=== PATIENT | female | born 1980 | race Two or more races ===

== ENCOUNTER 2020-08-01 16:03 | Inpatient (IN) | payer OTHER ==
[~2020-08-01] VITALS: Ht 157.5 cm; Wt 86.0 kg
[2020-08-01] MEDS ORDERED: ONDANSETRON HCL 4 MG/2 ML VIAL IV ONE (16:30)
[2020-08-01] MEDS ORDERED: SODIUM CHLORIDE 0.9% 1,000 ML IVB ONE (16:30)
[2020-08-01] MEDS ORDERED: MORPHINE SULFATE 4 MG/ML SYR/VIAL IV ONE ×2 (16:30→18:45)
[2020-08-01 16:47] LABS: Basophils # (auto) 0.1 10 ^3/uL (0-0.2); Basophils % (auto) 0.5 % (0.0-2.0); Eosinophils # (auto) 0.1 10 ^3/uL (0-0.8); Eosinophils % (auto) 0.9 % (0.0-7.0); Hematocrit 40.8 % (36.0-46.0); Hemoglobin 13.6 g/dL (12.2-16.2); Lymphocytes # (auto) 1.9 10 ^3/uL (0.4-5.4); Lymphocytes % (auto) 15.9 % (10.0-50.0); Mean Corpuscular Hemoglobin 29.2 pg (28.0-32.0); Mean Corpuscular Hgb Conc. 33.5 g/dL (32.0-36.0); Mean Corpuscular Volume 87.2 fL (80.0-100.0); Monocytes # (auto) 0.8 10 ^3/uL (0-1.3); Monocytes % (auto) 6.9 % (0.0-12.0); Neutrophils # (auto) 9.1 10 ^3/uL (1.6-8.6); Neutrophils % (auto) 75.8 % (37.0-80.0); Red Blood Cells 4.68 10^6/uL (4.0-5.20)
[2020-08-01 17:00] LABS: Partial Thromboplastin Time 24.2 sec (23.0-31.2)
[2020-08-01 17:10] LABS: Albumin 3.4 g/dL (3.4-5.0); Anion Gap 7 (5-15); Blood Urea Nitrogen 12 mg/dL (7-18); Carbon Dioxide 26 mmol/L (21-32); Chloride 99 mmol/L (98-107); Glucose 130 mg/dL (74-106); Lipase 62 U/L (73-393); Potassium 3.7 mmol/L (3.5-5.1); Sodium 132 mmol/L (136-145)
[2020-08-01 17:15] LABS: Lactic Acid w/Reflex 3.2 mmol/L (0.4-2.0)
[2020-08-01 17:18] LABS: Alanine Aminotransferase 62 U/L (13-56); Alkaline Phosphatase 316 U/L (45-117); Aspartate Aminotransferase 25 U/L (15-37); BUN/Creatinine Ratio 15.6; Bilirubin, Total 0.3 mg/dL (0.2-1.0); GFR African American 107 mL/min; GFR Non-African American 88 mL/min; Total Protein 9.3 g/dL (6.4-8.2)
[2020-08-01] MEDS ORDERED: CIPROFLOXACIN 400MG/200ML 200 ML IV ONE (17:30)
[2020-08-01] MEDS ORDERED: metroNIDAZOLE 500MG/100ML 100 ML IV ONE ×2 (17:30→22:30)
[2020-08-01 17:31] LABS: Urine Bacteria FEW /hpf (None Seen); Urine Blood Negative /uL (Negative); Urine Mucus FEW (None Seen); Urine Specific Gravity 1.027 (1.001-1.035); Urine WBC 9 /hpf (0 - 5)
[2020-08-01] MEDS ORDERED: ACETAMINOPHEN 325 MG TAB PO ONE (18:30)
[2020-08-01] MEDS ORDERED: MORPHINE SULFATE INJECTION 2 MG/ML SYRG IV ONE ×2 (18:30→19:30)
[2020-08-01] MEDS ORDERED: SODIUM CHLORIDE 0.9% 1,000 ML IV ONE ×2 (18:30→19:30)
[2020-08-01] MEDS ORDERED: HYDROmorphone HCL 2 MG/ML VL IV ONE (19:45)
[2020-08-01] MEDS ORDERED: IBUPROFEN 800 MG TAB PO ONE (19:45)
[2020-08-01] MEDS: SODIUM CHLORIDE 0.9% 1,000 ML IV SCH (22:30)
[2020-08-01] MEDS ORDERED: VANCOMYCIN PER PHARMACY 0 MG IV SCH (22:30)
[2020-08-01] MEDS ORDERED: NITROGLYCERIN 0.4 MG SL TAB SL PRN (22:30)
[2020-08-01] MEDS: VANCOMYCIN 1GM/250ML 250 ML IV SCH (23:29)
[2020-08-02] MEDS ORDERED: metroNIDAZOLE 500MG/100ML 100 ML IV SCH (06:00)
[2020-08-02 06:57] LABS: Basophils # (auto) 0 10 ^3/uL (0-0.2); Basophils % (auto) 0.1 % (0.0-2.0); Eosinophils # (auto) 0 10 ^3/uL (0-0.8); Eosinophils % (auto) 0.1 % (0.0-7.0); Hematocrit 36.7 % (36.0-46.0); Hemoglobin 12.5 g/dL (12.2-16.2); Lymphocytes # (auto) 1.1 10 ^3/uL (0.4-5.4); Lymphocytes % (auto) 9.6 % (10.0-50.0); Mean Corpuscular Hemoglobin 29.1 pg (28.0-32.0); Mean Corpuscular Hgb Conc. 33.9 g/dL (32.0-36.0); Mean Corpuscular Volume 85.8 fL (80.0-100.0); Monocytes # (auto) 0.5 10 ^3/uL (0-1.3); Monocytes % (auto) 4.2 % (0.0-12.0); Red Blood Cells 4.28 10^6/uL (4.0-5.20); Red Cell Distribution Width 13.7 % (11.8-14.3); White Blood Cell 11.6 10^3/uL (4.4-10.8)
[2020-08-02 07:33] LABS: Albumin 2.5 g/dL (3.4-5.0); Calcium 8.1 mg/dL (8.5-10.1); Potassium 3.3 mmol/L (3.5-5.1)
[2020-08-02 07:47] LABS: BUN/Creatinine Ratio 16.7; Bilirubin, Total 0.6 mg/dL (0.2-1.0); Total Protein 7.3 g/dL (6.4-8.2)
[2020-08-02] MEDS: SODIUM CHLORIDE 0.9% 1,000 ML IV SCH ×2 (08:30→18:31)
[2020-08-02] MEDS: MORPHINE SULFATE 4 MG/ML SYR/VIAL IV PRN (08:57)
[2020-08-02] MEDS ORDERED: cefTRIAXone 1GM/50ML D5W 50 ML IV SCH (09:00)
[2020-08-02] MEDS: PANTOPRAZOLE 40 MG/10 ML VIAL INJ IV SCH (09:38)
[2020-08-02] MEDS: VANCOMYCIN 1GM/250ML 250 ML IV SCH (09:51)
[2020-08-02] MEDS ORDERED: fentaNYL CITRATE 100 MCG/2 ML VL IV ONE (10:45)
[2020-08-02] MEDS ORDERED: MIDAZOLAM HCL 2MG/2ML 2ml VIAL (1mg/ml) IV ONE (10:45)
[2020-08-02] MEDS ORDERED: PIPERACILLIN-TAZO 4.5GM 100 ML IV ONE (11:00)
[2020-08-02] MEDS: POTASSIUM CHL 20MEQ/100ML 100 ML IV SCH ×2 (11:17→13:00)
[2020-08-02] MEDS ORDERED: IBUP200C95 PO (11:49)
[2020-08-02] MEDS ORDERED: ACET1CAP14 PO (11:49)
[2020-08-02] MEDS ORDERED: ACETAMINOPHEN 325 MG TAB PO ONE (12:00)
[2020-08-02] MEDS ORDERED: LIDOCAINE 2%HCL (LOCAL ANESTH.) INJ 20ML MDV ONE (12:11)
[2020-08-02] MEDS: PIPERACILLIN-TAZO 4.5GM 100 ML IV SCH ×2 (14:00→22:24)
[2020-08-02] MEDS: ACETAMINOPHEN 325 MG TAB PO PRN (18:37)
[2020-08-02] MEDS: MORPHINE SULFATE INJECTION 2 MG/ML SYRG IV PRN (21:58)
[2020-08-03] MEDS: ONDANSETRON HCL 4 MG/2 ML VIAL IV PRN ×4 (00:11→21:19)
[2020-08-03] MEDS: ACETAMINOPHEN 325 MG TAB PO PRN ×2 (00:48→18:49)
[2020-08-03] MEDS: SODIUM CHLORIDE 0.9% 1,000 ML IV SCH ×2 (04:30→15:03)
[2020-08-03] MEDS: MORPHINE SULFATE INJECTION 2 MG/ML SYRG IV PRN (05:18)
[2020-08-03] MEDS: PIPERACILLIN-TAZO 4.5GM 100 ML IV SCH ×3 (06:00→22:20)
[2020-08-03 07:28] LABS: Basophils # (auto) 0 10 ^3/uL (0-0.2); Basophils % (auto) 0.2 % (0.0-2.0); Eosinophils # (auto) 0 10 ^3/uL (0-0.8); Hematocrit 35.7 % (36.0-46.0); Hemoglobin 11.8 g/dL (12.2-16.2); Lymphocytes # (auto) 0.8 10 ^3/uL (0.4-5.4); Lymphocytes % (auto) 4.2 % (10.0-50.0); Mean Corpuscular Hemoglobin 28.6 pg (28.0-32.0); Mean Corpuscular Volume 86.7 fL (80.0-100.0); Monocytes # (auto) 0.8 10 ^3/uL (0-1.3); Monocytes % (auto) 4.2 % (0.0-12.0); Neutrophils # (auto) 16.3 10 ^3/uL (1.6-8.6); Neutrophils % (auto) 91.4 % (37.0-80.0); Red Blood Cells 4.12 10^6/uL (4.0-5.20); Red Cell Distribution Width 14.1 % (11.8-14.3); White Blood Cell 17.9 10^3/uL (4.4-10.8)
[2020-08-03 07:52] LABS: Calcium 8.1 mg/dL (8.5-10.1); Magnesium 2.2 mg/dL (1.6-2.6); Potassium 3.3 mmol/L (3.5-5.1)
[2020-08-03 07:54] LABS: BUN/Creatinine Ratio 16.3
[2020-08-03] MEDS: PANTOPRAZOLE 40 MG/10 ML VIAL INJ IV SCH (10:05)
[2020-08-03] MEDS: MORPHINE SULFATE 4 MG/ML SYR/VIAL IV PRN ×3 (12:13→21:19)
[2020-08-03] MEDS ORDERED: POTASSIUM CHLORIDE 40 MEQ, LIDOCAINE 1% (LOCAL ANESTH.) 4 ML in SODIUM CHL 0.9% 250 ML IV ONE (19:30)
[2020-08-03] MEDS: D5W/SOD CHL 0.9%/KCL 40MEQ 1,000 ML IV SCH (20:08)
[2020-08-03 22:00] VITALS: BP 124/77
[2020-08-03 22:11] VITALS: BP 124/77
[2020-08-04] MEDS: ACETAMINOPHEN 325 MG TAB PO PRN (01:56)
[2020-08-04] MEDS: MORPHINE SULFATE 4 MG/ML SYR/VIAL IV PRN ×4 (04:57→21:35)
[2020-08-04] MEDS: D5W/SOD CHL 0.9%/KCL 40MEQ 1,000 ML IV SCH ×2 (04:58→06:01)
[2020-08-04] MEDS: ONDANSETRON HCL 4 MG/2 ML VIAL IV PRN ×4 (04:58→21:35)
[2020-08-04 05:00] VITALS: BP 118/75
[2020-08-04] MEDS: PIPERACILLIN-TAZO 4.5GM 100 ML IV SCH ×2 (05:05→14:00)
[2020-08-04 08:00] VITALS: BP 117/75
[2020-08-04] MEDS: PANTOPRAZOLE 40 MG/10 ML VIAL INJ IV SCH (10:00)
[2020-08-04] MEDS ORDERED: metroNIDAZOLE 500MG/100ML 100 ML IV ONE ×2 (10:00→10:09)
[2020-08-04] MEDS ORDERED: ceFAZolin 1GM/50ML 50 ML IV ONE (10:08)
[2020-08-04] MEDS ORDERED: fentaNYL CITRATE 100 MCG/2 ML VL ONE (10:12)
[2020-08-04] MEDS ORDERED: MIDAZOLAM HCL 2MG/2ML 2ml VIAL (1mg/ml) ONE (10:12)
[2020-08-04] MEDS ORDERED: HYDROmorphone HCL 2 MG/ML VL ONE (10:12)
[2020-08-04] MEDS ORDERED: DexAMETHasone SOD PHOS 10MG/1ML VIAL INJ ONE (10:13)
[2020-08-04] MEDS ORDERED: ETOMIDATE (2MG/ML) 20ML VIAL IV ONE (10:13)
[2020-08-04] MEDS ORDERED: SUCCINYLCHOLINE CHLORIDE 20 MG/ML 10ML VIAL IV ONE (10:16)
[2020-08-04] MEDS ORDERED: ROCURONIUM 10MG/ML 10ML VIAL IV ONE (12:40)
[2020-08-04] MEDS: D5W/SOD CHL 0.45%/KCL 20MEQ 1,000 ML IV SCH ×2 (12:45→21:35)
[2020-08-04] MEDS ORDERED: LABETALOL HCL 5 MG/ML 4ML SYRINGE IV PRN (13:30)
[2020-08-04] MEDS ORDERED: MIDAZOLAM HCL 2MG/2ML 2ml VIAL (1mg/ml) IV PRN (13:30)
[2020-08-04] MEDS ORDERED: MORPHINE SULFATE 4 MG/ML SYR/VIAL IV PRN (13:30)
[2020-08-04] MEDS ORDERED: ONDANSETRON HCL 4 MG/2 ML VIAL IV PRN (13:30)
[2020-08-04] MEDS ORDERED: HYDROmorphone HCL 2 MG/ML VL IV PRN (13:30)
[2020-08-04] MEDS ORDERED: ePHEDrine SULFATE 50 MG/ML AMP IV PRN (13:30)
[2020-08-04 15:42] VITALS: BP 99/64
[2020-08-04] MEDS: MEROPENEM 1GM IVPB 100 ML IV SCH (21:35)
[2020-08-04] MEDS ORDERED: metroNIDAZOLE 500MG/100ML 100 ML IV SCH (22:00)
[2020-08-04 22:10] VITALS: BP 117/70
[2020-08-05 05:00] VITALS: BP 114/72
[2020-08-05] MEDS: MEROPENEM 1GM IVPB 100 ML IV SCH ×3 (05:21→22:00)
[2020-08-05] MEDS: D5W/SOD CHL 0.45%/KCL 20MEQ 1,000 ML IV SCH ×3 (05:21→21:10)
[2020-08-05] MEDS: ONDANSETRON HCL 4 MG/2 ML VIAL IV PRN ×5 (05:21→23:25)
[2020-08-05] MEDS: MORPHINE SULFATE 4 MG/ML SYR/VIAL IV PRN ×5 (05:22→23:35)
[2020-08-05 06:04] LABS: Basophils # (auto) 0 10 ^3/uL (0-0.2); Basophils % (auto) 0.1 % (0.0-2.0); Eosinophils # (auto) 0 10 ^3/uL (0-0.8); Hematocrit 31.2 % (36.0-46.0); Hemoglobin 10.5 g/dL (12.2-16.2); Lymphocytes # (auto) 0.7 10 ^3/uL (0.4-5.4); Mean Corpuscular Hemoglobin 29.2 pg (28.0-32.0); Mean Corpuscular Hgb Conc. 33.8 g/dL (32.0-36.0); Mean Corpuscular Volume 86.5 fL (80.0-100.0); Monocytes % (auto) 8.4 % (0.0-12.0); Neutrophils # (auto) 10.2 10 ^3/uL (1.6-8.6); Neutrophils % (auto) 85.5 % (37.0-80.0); White Blood Cell 11.9 10^3/uL (4.4-10.8)
[2020-08-05 06:14] LABS: Calcium 7.9 mg/dL (8.5-10.1); Potassium 4.1 mmol/L (3.5-5.1)
[2020-08-05 06:18] LABS: BUN/Creatinine Ratio 33.3; Bilirubin, Total 0.3 mg/dL (0.2-1.0); Total Protein 6.6 g/dL (6.4-8.2)
[2020-08-05 08:00] VITALS: BP 108/62
[2020-08-05] MEDS: PANTOPRAZOLE 40 MG/10 ML VIAL INJ IV SCH (10:05)
[2020-08-05 16:00] VITALS: BP 112/67
[2020-08-05 22:00] VITALS: BP 111/66
[2020-08-06] MEDS ORDERED: TEMAZEPAM 15 MG CAP PO ONE (00:45)
[2020-08-06 05:00] VITALS: BP 101/67
[2020-08-06] MEDS: D5W/SOD CHL 0.45%/KCL 20MEQ 1,000 ML IV SCH ×3 (06:03→20:53)
[2020-08-06] MEDS: MEROPENEM 1GM IVPB 100 ML IV SCH ×3 (06:03→22:00)
[2020-08-06] MEDS: MORPHINE SULFATE 4 MG/ML SYR/VIAL IV PRN ×4 (06:24→19:48)
[2020-08-06] MEDS: ONDANSETRON HCL 4 MG/2 ML VIAL IV PRN ×4 (06:25→19:48)
[2020-08-06 07:03] LABS: Basophils # (auto) 0 10 ^3/uL (0-0.2); Basophils % (auto) 0.1 % (0.0-2.0); Eosinophils # (auto) 0.2 10 ^3/uL (0-0.8); Eosinophils % (auto) 2.4 % (0.0-7.0); Hematocrit 31.2 % (36.0-46.0); Hemoglobin 10.7 g/dL (12.2-16.2); Lymphocytes # (auto) 1.5 10 ^3/uL (0.4-5.4); Lymphocytes % (auto) 16.2 % (10.0-50.0); Mean Corpuscular Hemoglobin 29.5 pg (28.0-32.0); Mean Corpuscular Hgb Conc. 34.4 g/dL (32.0-36.0); Mean Corpuscular Volume 85.8 fL (80.0-100.0); Monocytes # (auto) 1.1 10 ^3/uL (0-1.3); Monocytes % (auto) 11.9 % (0.0-12.0); Neutrophils # (auto) 6.6 10 ^3/uL (1.6-8.6); Neutrophils % (auto) 69.4 % (37.0-80.0); Nucleated Red Blood Cells % 0.1 %; Red Blood Cells 3.64 10^6/uL (4.0-5.20); Red Cell Distribution Width 13.4 % (11.8-14.3); White Blood Cell 9.5 10^3/uL (4.4-10.8)
[2020-08-06 07:28] LABS: Albumin 2.1 g/dL (3.4-5.0); Calcium 8.1 mg/dL (8.5-10.1); Potassium 3.7 mmol/L (3.5-5.1)
[2020-08-06 07:34] LABS: BUN/Creatinine Ratio 34.3; Bilirubin, Total 0.4 mg/dL (0.2-1.0); Total Protein 6.8 g/dL (6.4-8.2)
[2020-08-06 08:00] VITALS: BP 114/68
[2020-08-06] MEDS: PANTOPRAZOLE 40 MG/10 ML VIAL INJ IV SCH (10:36)
[2020-08-06 16:00] VITALS: BP 112/68
[2020-08-06 22:00] VITALS: BP 107/61
[2020-08-06] MEDS: TEMAZEPAM 15 MG CAP PO PRN (22:21)
[2020-08-07 05:09] VITALS: BP 104/66
[2020-08-07] MEDS: ONDANSETRON HCL 4 MG/2 ML VIAL IV PRN ×4 (05:15→22:45)
[2020-08-07] MEDS: MORPHINE SULFATE 4 MG/ML SYR/VIAL IV PRN ×5 (05:15→22:45)
[2020-08-07] MEDS: MEROPENEM 1GM IVPB 100 ML IV SCH ×3 (05:59→22:00)
[2020-08-07 06:50] LABS: Hematocrit 37.8 % (36.0-46.0); Hemoglobin 12.7 g/dL (12.2-16.2); Mean Corpuscular Hemoglobin 28.7 pg (28.0-32.0); Mean Corpuscular Hgb Conc. 33.6 g/dL (32.0-36.0); Mean Corpuscular Volume 85.6 fL (80.0-100.0); Red Blood Cells 4.42 10^6/uL (4.0-5.20); Red Cell Distribution Width 13.7 % (11.8-14.3); White Blood Cell 12.7 10^3/uL (4.4-10.8)
[2020-08-07 06:57] LABS: Basophils % (manual) 0 (0.0-2.0); Blast Cells 0; Reactive Lymphocytes 0
[2020-08-07 07:04] LABS: Potassium 3.9 mmol/L (3.5-5.1)
[2020-08-07 07:14] LABS: Albumin 2.3 g/dL (3.4-5.0); Bilirubin, Total 0.6 mg/dL (0.2-1.0); Calcium 8.6 mg/dL (8.5-10.1); Total Protein 7.6 g/dL (6.4-8.2)
[2020-08-07 08:00] VITALS: BP 120/71
[2020-08-07 08:19] LABS: Band Neutrophils % (manual) 1; Lymphocytes % (manual) 10 (10.0-50.0); Monocytes % (manual) 7 (0-12)
[2020-08-07 08:20] LABS: Eosinophils % (manual) 8 (0-7); Metamyelocytes % 2; Myelocytes % 2; Promyelocytes % 1
[2020-08-07] MEDS: D5W/SOD CHL 0.45%/KCL 20MEQ 1,000 ML IV SCH ×3 (09:53→22:09)
[2020-08-07] MEDS: PANTOPRAZOLE 40 MG/10 ML VIAL INJ IV SCH (09:54)
[2020-08-07 16:00] VITALS: BP 113/75
[2020-08-07 22:00] VITALS: BP 119/71
[2020-08-08] MEDS: ONDANSETRON HCL 4 MG/2 ML VIAL IV PRN ×5 (02:30→22:00)
[2020-08-08] MEDS: MORPHINE SULFATE 4 MG/ML SYR/VIAL IV PRN ×5 (02:30→22:00)
[2020-08-08] MEDS: TEMAZEPAM 15 MG CAP PO PRN ×2 (02:30→22:34)
[2020-08-08 05:00] VITALS: BP 97/60
[2020-08-08] MEDS: MEROPENEM 1GM IVPB 100 ML IV SCH ×3 (06:00→22:00)
[2020-08-08 07:13] LABS: Basophils # (auto) 0 10 ^3/uL (0-0.2); Eosinophils # (auto) 0.5 10 ^3/uL (0-0.8); Neutrophils % (auto) 75.9 % (37.0-80.0); Nucleated Red Blood Cells % 0.2 %; Red Cell Distribution Width 13.8 % (11.8-14.3)
[2020-08-08 07:16] LABS: Basophils % (auto) 0.2 % (0.0-2.0); Eosinophils % (auto) 3.3 % (0.0-7.0); Hematocrit 35.3 % (36.0-46.0); Hemoglobin 12.4 g/dL (12.2-16.2); Lymphocytes # (auto) 1.5 10 ^3/uL (0.4-5.4); Lymphocytes % (auto) 10.1 % (10.0-50.0); Mean Corpuscular Volume 85.8 fL (80.0-100.0); Monocytes # (auto) 1.5 10 ^3/uL (0-1.3); Monocytes % (auto) 10.5 % (0.0-12.0); Neutrophils # (auto) 10.9 10 ^3/uL (1.6-8.6); Red Blood Cells 4.11 10^6/uL (4.0-5.20); White Blood Cell 14.4 10^3/uL (4.4-10.8)
[2020-08-08 07:53] LABS: Potassium 4.8 mmol/L (3.5-5.1)
[2020-08-08 08:00] VITALS: BP 114/70
[2020-08-08 08:05] LABS: Albumin 2.2 g/dL (3.4-5.0); BUN/Creatinine Ratio 26.3; Bilirubin, Total 0.6 mg/dL (0.2-1.0); Calcium 8.3 mg/dL (8.5-10.1); Total Protein 6.4 g/dL (6.4-8.2)
[2020-08-08] MEDS: PANTOPRAZOLE 40 MG/10 ML VIAL INJ IV SCH (09:51)
[2020-08-08 15:47] VITALS: BP 104/64
[2020-08-08 21:54] VITALS: BP 103/65
[2020-08-09 05:00] VITALS: BP_SYST 104; BP_SYST 147; BP_DIAS 64; BP_DIAS 90
[2020-08-09] MEDS: MEROPENEM 1GM IVPB 100 ML IV SCH ×3 (05:44→22:00)
[2020-08-09 06:45] LABS: Eosinophils # (auto) 0.6 10 ^3/uL (0-0.8); Mean Corpuscular Hemoglobin 28.8 pg (28.0-32.0); Mean Corpuscular Volume 85.5 fL (80.0-100.0); Neutrophils # (auto) 11.4 10 ^3/uL (1.6-8.6)
[2020-08-09 06:49] LABS: Basophils # (auto) 0 10 ^3/uL (0-0.2); Basophils % (auto) 0.3 % (0.0-2.0); Eosinophils % (auto) 3.9 % (0.0-7.0); Hemoglobin 12.1 g/dL (12.2-16.2); Lymphocytes # (auto) 1.5 10 ^3/uL (0.4-5.4); Lymphocytes % (auto) 10.1 % (10.0-50.0); Mean Corpuscular Hgb Conc. 33.7 g/dL (32.0-36.0); Monocytes # (auto) 1.4 10 ^3/uL (0-1.3); Monocytes % (auto) 9.1 % (0.0-12.0); Neutrophils % (auto) 76.6 % (37.0-80.0); Nucleated Red Blood Cells % 0.3 %; Red Blood Cells 4.21 10^6/uL (4.0-5.20); Red Cell Distribution Width 13.9 % (11.8-14.3); White Blood Cell 14.9 10^3/uL (4.4-10.8)
[2020-08-09 07:03] LABS: Calcium 8.5 mg/dL (8.5-10.1); Potassium 4.5 mmol/L (3.5-5.1)
[2020-08-09 07:05] LABS: BUN/Creatinine Ratio 26.8
[2020-08-09 09:00] VITALS: BP 106/60
[2020-08-09] MEDS: PANTOPRAZOLE 40 MG/10 ML VIAL INJ IV SCH (09:30)
[2020-08-09] MEDS: MORPHINE SULFATE 4 MG/ML SYR/VIAL IV PRN ×2 (10:30→20:00)
[2020-08-09] MEDS: ONDANSETRON HCL 4 MG/2 ML VIAL IV PRN ×2 (10:35→20:00)
[2020-08-09 12:37] VITALS: BP 114/68
[2020-08-09 16:42] VITALS: BP 129/68
[2020-08-09 22:00] VITALS: BP 114/62
[2020-08-09] MEDS: TEMAZEPAM 15 MG CAP PO PRN (22:00)
[2020-08-10] MEDS: MORPHINE SULFATE 4 MG/ML SYR/VIAL IV PRN ×3 (02:00→22:30)
[2020-08-10] MEDS: ONDANSETRON HCL 4 MG/2 ML VIAL IV PRN ×3 (02:00→22:30)
[2020-08-10 05:00] VITALS: BP_SYST 115; BP_SYST 141; BP_DIAS 67; BP_DIAS 80
[2020-08-10] MEDS: MEROPENEM 1GM IVPB 100 ML IV SCH ×3 (06:20→22:00)
[2020-08-10 09:00] VITALS: BP 106/58
[2020-08-10] MEDS: PANTOPRAZOLE 40 MG/10 ML VIAL INJ IV SCH (11:42)
[2020-08-10] MEDS: HYDROcodone-ACET 5/325MG TAB PO PRN ×2 (11:42→18:09)
[2020-08-10 13:00] VITALS: BP 120/75
[2020-08-10 17:00] VITALS: BP 108/60
[2020-08-10] MEDS ORDERED: FUROSEMIDE 20 MG/2 ML VIAL IV ONE (18:45)
[2020-08-10 22:00] VITALS: BP 101/62
[2020-08-11] MEDS: MORPHINE SULFATE 4 MG/ML SYR/VIAL IV PRN ×2 (02:20→06:34)
[2020-08-11] MEDS: ONDANSETRON HCL 4 MG/2 ML VIAL IV PRN ×2 (02:20→06:35)
[2020-08-11] MEDS: HYDROcodone-ACET 5/325MG TAB PO PRN ×2 (04:55→11:44)
[2020-08-11 05:00] VITALS: BP 117/73
[2020-08-11] MEDS: MEROPENEM 1GM IVPB 100 ML IV SCH ×2 (06:00→13:51)
[2020-08-11 06:27] LABS: Calcium 8.7 mg/dL (8.5-10.1); Potassium 4.1 mmol/L (3.5-5.1)
[2020-08-11 06:29] LABS: BUN/Creatinine Ratio 36.2
[2020-08-11 06:54] LABS: Hematocrit 37.7 % (36.0-46.0); Hemoglobin 12.2 g/dL (12.2-16.2); Mean Corpuscular Hgb Conc. 32.4 g/dL (32.0-36.0); Mean Corpuscular Volume 89.5 fL (80.0-100.0); Red Blood Cells 4.21 10^6/uL (4.0-5.20); White Blood Cell 12.9 10^3/uL (4.4-10.8)
[2020-08-11 07:08] LABS: Basophils % (manual) 0 (0.0-2.0); Blast Cells 0; Promyelocytes % 0; Reactive Lymphocytes 0
[2020-08-11 08:27] LABS: Band Neutrophils % (manual) 2; Eosinophils % (manual) 5 (0-7); Lymphocytes % (manual) 13 (10.0-50.0); Metamyelocytes % 1; Monocytes % (manual) 13 (0-12); Myelocytes % 2
[2020-08-11 08:30] VITALS: BP 106/58
[2020-08-11 09:00] VITALS: BP 106/58
[2020-08-11] MEDS: PANTOPRAZOLE 40 MG/10 ML VIAL INJ IV SCH (09:36)
[2020-08-11 13:00] VITALS: BP 113/61
[2020-08-11] MEDS: ACETAMINOPHEN 325 MG TAB PO PRN (16:31)
[2020-08-11 17:00] VITALS: BP 126/70
== END 2020-08-11 19:40 | DRG 854 ==
LOC: ER 16:03 → EDBD 16:03 → TELE 22:23 → CENTRAL 08-03 22:01
PROVIDERS: ADMIT Nurse Practitioner; ATTEND Internal Medicine
PROC: 0W9F3ZZ Drainage of Abdominal Wall, Percutaneous Approach (ICD-10-PCS; 2020-08-02)
PROC: 0DBU0ZZ Excision of Omentum, Open Approach (ICD-10-PCS; 2020-08-04)
PROC: 0D1L0Z4 Bypass Transverse Colon to Cutaneous, Open Approach (ICD-10-PCS; principal; 2020-08-04 10:15)
DX: A41.9 Sepsis, unspecified organism (principal); E44.0 Moderate protein-calorie malnutrition; E87.1 Hypo-osmolality and hyponatremia; N39.0 Urinary tract infection, site not specified; K57.20 Diverticulitis of large intestine with perforation and abscess without bleeding; E66.01 Morbid (severe) obesity due to excess calories; E87.6 Hypokalemia; Z20.822 Contact with and (suspected) exposure to COVID-19; N73.9 Female pelvic inflammatory disease, unspecified; R59.9 Enlarged lymph nodes, unspecified; F41.9 Anxiety disorder, unspecified; Z68.34 Body mass index [BMI] 34.0-34.9, adult; Z82.49 Family history of ischemic heart disease and other diseases of the circulatory system
CPT/HCPCS: 10022; 36415; 71045; 74176; 77012; 80048; 80053; 80202; 80329; 81001; 82150; 83605; 83690; 83735; 84443; 84484; 84702; 85007; 85025; 85027; 85610; 85730; 86850; 86900; 86901; 87040; 87070; 87075; 87077; 87186; 87205; 87426; 97110; 97116; 97530; 99291; C1729; C9113; G0378; J0330; J0690; J0696; J1100; J2001; J2185; J2250; J2405; J2543; J3480; J3490